=== PATIENT | male | born 1960 | race Caucasian/White ===

== ENCOUNTER 2021-04-19 08:09 | Outpatient (CLI) | payer MEDICARE, SELFPAY ==
--- NOTE | ~2021-04-19 | XR_ITS ---
XR knee LT 3V DATE: 04/19/2021 09:02 INDICATION: Medial left knee pain for 2 months TECHNIQUE: AP, lateral and sunrise views COMPARISON: None FINDINGS: There is prominent enthesopathy of the patella at the quadriceps and patellar tendon insert ions. No fracture or dislocation or joint effusion. No periosteal reaction or bone destruction. No radiopaq ue intra-articular loose body or chondrocalcinosis. There is moderately prominent loss of joint space and minimal periarticular spurring at the medial co mpartment. There is minimal periarticular spurring of the lateral compartment but preservation of lat eral compartment joint space. IMPRESSION: Osteoarthritis involving primarily the medial compartment Reviewed, dictated and finalized at location A. TER SUPERVISOR
[2021-04-19 18:17] LABS: Basophils Absolute Auto 0.1 K/mm3 (0.0-0.1); Eosinophils Absolute Auto 0.4 K/mm3 (0-0.3); Eosinophils Percent Auto 4.4 % (0-4.4); Hematocrit 53.6 % (42.0-52.0); Hemoglobin 16.6 g/dL (14.0-18.0); Immature Granulocyte Absolute 0.06 K/mm3 (0.00-0.031); Immature Granulocyte Percent A 0.7 % (0-0.5); Lymphocytes Absolute Auto 1.48 K/mm3 (0.9-3.2); Mean Corpuscular Hemoglobin 29.1 pg (26-34); Mean Corpuscular Volume 93.9 fl (80-100); Mean Platelet Volume 11.6 fl (7.4-10.4); Monocytes Absolute Auto 0.7 K/mm3 (0.1-0.6); Monocytes Percent Auto 8.8 % (2.6-8.5); Neutrophils Absolute Auto 5.5 K/mm3 (1.3-6.7); Neutrophils Percent Auto 67.1 % (45.5-73.1); Platelet Count Result 145 k/mm3 (150-375); Red Blood Count 5.71 M/mm3 (4.6-6.20); Red Cell Distribution Width 16.4 % (11.5-14.5); White Blood Count 8.2 K/mm3 (4.5-10.0)
[2021-04-19 18:40] LABS: Creatinine Urine 85.8 mg/dL
[2021-04-19 18:45] LABS: MALB Creatinine Ratio 11.9 mg/g (0-30); Microalbumin Urine Random 10.2 mg/L (0-16.7)
[2021-04-19 18:54] LABS: Alanine Aminotransferase 22 U/L (4-50); Albumin Level 3.9 g/dL (3.5-5.1); Alkaline Phosphatase 78 U/L (38-126); Anion Gap 12 mmol/L (8-16); Aspartate Amino Transferase 24 U/L (17-59); Bilirubin,Total 1.2 mg/dL (0.2-1.3); Blood Urea Nitrogen 35 mg/dL (9-20); Calcium 9.4 mg/dL (8.4-10.2); Carbon Dioxide 33 mmol/L (22-30); Chloride 92 mmol/L (98-107); Cholesterol 115 mg/dL (0-200); Estimated Glomerular Filt Rate 56; Glucose 175 mg/dL (65-110); HDL Direct 37 mg/dL; Potassium 4.4 mmol/L (3.4-5.0); Sodium 137 mmol/L (137-145); Triglycerides 94 mg/dL (<150)
[2021-04-19 19:02] LABS: Hemoglobin A1C 6.9 % (<5.7)
[2021-04-19 19:05] LABS: LDL Cholesterol Direct 69 mg/dL
[2021-04-19 19:23] LABS: Prostate Specific Antigen 0.8 ng/mL (< OR = 4.0)
[2021-04-23 12:52] LABS: Testosterone Free 30.5 pg/mL (35.0-155.0); Testosterone Total 131 ng/dL (250-1100)
== END 2021-04-19 08:10 | disposition home or self-care (01) ==
PROVIDERS: PCP Family Medicine; Visit Provider Family Medicine
DX: E11.9 Type 2 diabetes mellitus without complications (principal); Z12.5 Encounter for screening for malignant neoplasm of prostate; R79.89 Other specified abnormal findings of blood chemistry; M17.12 Unilateral primary osteoarthritis, left knee
CPT/HCPCS: 36415; 73562; 80053; 80061; 82043; 83036; 84153; 84402; 84403; 85025; G0103

== ENCOUNTER 2021-05-23 08:20 | Outpatient (CLI) | payer MEDICARE, SELFPAY ==
[2021-05-23 18:55] LABS: Basophils Percent Auto 0.7 % (0.2-1.2); Eosinophils Absolute Auto 0.4 K/mm3 (0-0.3); Hematocrit 49.8 % (42.0-52.0); Hemoglobin 15.3 g/dL (14.0-18.0); Immature Granulocyte Absolute 0.04 K/mm3 (0.00-0.031); Immature Granulocyte Percent A 0.7 % (0-0.5); Immature Platelet Fraction Pct 9.6 % (0.9-11.2); Lymphocytes Absolute Auto 0.77 K/mm3 (0.9-3.2); Lymphocytes Percent Auto 14.3 % (18.3-44.2); Mean Corpuscular HGB Conc 30.7 g/dl (32-36); Mean Corpuscular Hemoglobin 29.5 pg (26-34); Mean Corpuscular Volume 96.1 fl (80-100); Mean Platelet Volume 11.8 fl (7.4-10.4); Monocytes Absolute Auto 0.7 K/mm3 (0.1-0.6); Monocytes Percent Auto 13.4 % (2.6-8.5); Neutrophils Absolute Auto 3.4 K/mm3 (1.3-6.7); Neutrophils Percent Auto 62.9 % (45.5-73.1); Platelet Count Result 134 k/mm3 (150-375); Red Blood Count 5.18 M/mm3 (4.6-6.20); Red Cell Distribution Width 17.8 % (11.5-14.5); White Blood Count 5.4 K/mm3 (4.5-10.0)
[2021-05-28 15:14] LABS: Testosterone Free 27.3 pg/mL (35.0-155.0); Testosterone Total 145 ng/dL (250-1100)
== END 2021-05-23 08:21 | disposition home or self-care (01) ==
PROVIDERS: PCP Family Medicine; Visit Provider Family Medicine
DX: R79.89 Other specified abnormal findings of blood chemistry (principal); T78.40XA Allergy, unspecified, initial encounter
CPT/HCPCS: 36415; 84402; 84403; 85025; 85055

== ENCOUNTER 2021-06-01 20:28 | Inpatient (IN) | payer MEDICARE, SELFPAY ==
[2021-06-01] VITALS (23 sets, daily range): BP systolic 104–148; BP diastolic 60–98; PULSE 75–104; RESP 17–29; TEMP 36.6–37.3; O2SAT 90–95; BMI 47.2
--- NOTE | ~2021-06-01 | XR_ITS ---
EXAMINATION: XR chest 1V portable DATE: 06/03/2021 14:12 INDICATION: COVID-19 pneumonia. TECHNIQUE: A single frontal view of the chest was obtained. COMPARISON: Chest 2 views 06/01/2021 FINDINGS: There are mild airspace opacities in the lower lung zones. No pleural effusion or pneumotho rax. Cardiomegaly is noted. There are old healed bilateral rib fractures. IMPRESSION: 1. Improved mild airspace opacities in the lower lung zones, consistent with atelectasis versus pneum onia. 2. Cardiomegaly. Reviewed, dictated and finalized at location A. IMPRESSION: 1. Improved mild airspace opacities in the lower lung zones, consistent with at electasis versus pneumonia. 2. Cardiomegaly.
--- NOTE | ~2021-06-01 | XR_ITS ---
EXAMINATION: XR chest 2V EXAM DATE: 06/01/2021 21:05 INDICATION: Hypoxia, SOB X 1 Week, Worse Last 2 Days. TECHNIQUE: Frontal and lateral projections of the chest obtained and reviewed. There is no prior svetlana dy for comparison. FINDINGS: There is mild cardiomegaly. Moderate amount of bilateral mid and lower lung zone airspace disease with relative sparing of the upper lung zones. Could be edema and/or pneumonia. Please clinic ally correlate. Small pleural effusions. There is no pneumothorax suspected. IMPRESSION: 1. Mild cardiomegaly. Small pleural effusions. . 2. Moderate bilateral edema (CHF) or pneumonia, would favor viral or bacterial. Reviewed, dictated and finalized at location G. IMPRESSION: 1. Mild cardiomegaly. Small pleural effusions. . 2. Moderate bilateral edema (CHF) or pneumonia, would favor viral or bacterial .
--- NOTE | 2021-06-01 20:39 | ECG_ITS ---
Measurements Intervals [place] Rate: 94 P: 63 SC: 209 QRS: 126 QRSD: 102 T: 71 QT: 392 QTc: 491 Interpretive Statements SINUS RHYTHM WITH FREQUENT SUPRAVENTRICULAR PREMATURE COMPLEXES INCOMPLETE RIGHT BUNDLE BRANCH BLOCK [90+ ms QRS DURATION, TERMINAL R IN V1/V2, 40+ ms S IN I/aVL/V4/V5/V6] RIGHTWARD AXIS ABNORMAL ECG NO PREVIOUS ECG AVAILABLE FOR COMPARISON Electronically Signed On 06-02-2021 8:32:25 CDT by Eduardo Lam M.D.
[2021-06-01 20:52] LABS: Basophils Percent Auto 0.5 % (0.2-1.2); Eosinophils Absolute Auto 0.1 K/mm3 (0-0.3); Eosinophils Percent Auto 2.6 % (0-4.4); Hematocrit 49.4 % (42.0-52.0); Hemoglobin 15.6 g/dL (14.0-18.0); Immature Granulocyte Absolute 0.05 K/mm3 (0.00-0.031); Immature Granulocyte Percent A 1.3 % (0-0.5); Immature Platelet Fraction Pct 8.4 % (0.9-11.2); Lymphocytes Absolute Auto 1.02 K/mm3 (0.9-3.2); Lymphocytes Percent Auto 26.1 % (18.3-44.2); Mean Corpuscular HGB Conc 31.6 g/dl (32-36); Mean Corpuscular Hemoglobin 29.3 pg (26-34); Mean Corpuscular Volume 92.9 fl (80-100); Mean Platelet Volume 11.3 fl (7.4-10.4); Monocytes Absolute Auto 0.5 K/mm3 (0.1-0.6); Monocytes Percent Auto 12.5 % (2.6-8.5); Neutrophils Absolute Auto 2.2 K/mm3 (1.3-6.7); Platelet Count Result 132 k/mm3 (150-375); Red Blood Count 5.32 M/mm3 (4.6-6.20); Red Cell Distribution Width 18.1 % (11.5-14.5); White Blood Count 3.9 K/mm3 (4.5-10.0)
[2021-06-01 21:00] LABS: Alanine Aminotransferase 33 U/L (4-50); Albumin Level 3.8 g/dL (3.5-5.1); Alkaline Phosphatase 66 U/L (38-126); Anion Gap 7 mmol/L (8-16); Aspartate Amino Transferase 38 U/L (17-59); Blood Urea Nitrogen 22 mg/dL (9-20); Calcium 8.5 mg/dL (8.4-10.2); Carbon Dioxide 31 mmol/L (22-30); Chloride 100 mmol/L (98-107); Estimated CRCL calculation 80 ml/min; Estimated Glomerular Filt Rate > 60; Glucose 139 mg/dL (65-110); Potassium 3.9 mmol/L (3.4-5.0); Sodium 138 mmol/L (137-145)
--- NOTE | 2021-06-01 21:25 | ED.SOB ---
HPI - SOB/Dyspnea General Chief Complaint: Shortness of Breath/Dyspnea Stated Complaint: SOB Time Seen by Provider: 06/01/21 20:50 History of Present Illness HPI Narrative: Patient is a 60-year-old male who presents ER with shortness of breath. Has history of CHF. Takes diuretics. Ran out yesterday. No new edema in his legs. Has had increasing shortness of breath over the last 1 to 2 weeks. Markedly worsening today. Reports his O2 saturation is typically between 88 and 90. He has home O2 that was given to him a couple months ago after hospital hospitalization. Reports he should use this at night and as needed. No chest pain or chest pressure. No fevers or chills or sweats. No runny nose or sore throat or productive cough. Related Data Home Medications Medication Instructions Recorded Confirmed carvedilol 3.125 mg PO DAILY 06/02/21 06/02/21 linagliptin [Tradjenta] 5 mg PO DAILY 06/02/21 06/02/21 metformin 500 mg PO BID 06/02/21 06/02/21 Allergies Allergy/AdvReac Type Severity Reaction Status Date / Time diphenhydramine Allergy Rash Verified 06/02/21 00:35 [From Benadryl] Penicillins AdvReac Swelling Verified 06/02/21 00:35 Review of Systems Review of Systems: All systems reviewed & are unremarkable except as noted in HPI and below Constitutional: Constitutional: Denies chills, Denies fever(s) and Denies weakness ENT: Denies nasal congestion and Denies sore throat Cardiovascular: Cardiovascular: Denies chest pain, Denies rapid heart rate and Denies radiating jaw, neck or arm pain Respiratory: Respiratory: Denies chest congestion, Denies cough, Reports dyspnea and Denies wheezing Gastrointestinal: Gastrointestinal: Denies abdominal pain, Denies diarrhea, Denies nausea and Denies vomiting Genitourinary: Genitourinary: Denies dysuria and Denies urinary frequency Neurologic: Denies headache(s), Denies focal weakness and Denies numbness [facility] Past Medical History Medical History (Updated 06/02/21 @ 01:33 by Loraine Bradley DO) Bleeding from varicose veins of lower extremity (~2012) Resulting in hemorrhagic shock BPH (benign prostatic hyperplasia) CHF (congestive heart failure) Diabetes hemoglobin A1c of 6.9 April 19, 2021 Dyslipidemia History of hepatitis C Low testosterone Morbid obesity with BMI of 40.0-44.9, adult MAYE (obstructive sleep apnea) Uses nighttime oxygen Venous stasis dermatitis Surgical History Surgical History (Updated 06/02/21 @ 01:01 by Loraine Bradley DO) H/O inguinal hernia repair As an infant History of colonoscopy with polypectomy (~2019) Due for repeat colonoscopy 2024 History of laparoscopic cholecystectomy Family History Family History Father , At age 84 Alzheimer disease Heart problem Skin cancer Mother , At age 63 Carcinoma of colon Sibling , At age 52 Malignant melanoma Social History Social History (Updated 06/02/21 @ 01:11 by Loraine Bradley DO) Social History: The patient is . He currently is living with a friend while looking for his own residence. 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 He used to smoke 1 pack of cigarettes per week with intermittent tobacco use over the years. He quit smoking altogether in 2011. He is a recovering alcoholic but quit drinking in 2017. He used IV methamphetamines but quit use in 2019. Code status: DNR in the event of a cardiac arrest. If he were having respiratory difficulty he would be willing to be intubated if he had a reasonable chance of being extubated and returning to his prior functional status. Surrogate decision makers: Feroz (son) and Saqib Pitts (daughter) Smoking packs per day: 0.45 Smoking cigarettes per day: 9.0 Years smoked: 20 Smoking pack-years: 9.00 Smoking status: Former smoker Alcohol intake:
[2021-06-01 21:32] LABS: NT Pro B Type Natriuretic Pept 2280 pg/mL (5-100)
[2021-06-01] MEDS: ALBUTEROL SULFATE NEB 2.5 MG/0.5 ML INH 5 MG INHALATION (21:35)
[2021-06-01] MEDS: IPRATROPIUM BR 0.02% INH SOLN 0.5 MG/2.5 ML VIAL INHALATION (21:36)
[2021-06-01] MEDS: FUROSEMIDE INJ 40 MG/4 ML VIAL IV PUSH (21:56)
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
[2021-06-01 23:14] LABS: SARS-CoV-2 RNA PCR Positive
--- NOTE | 2021-06-01 23:46 | ADMGEN ---
This patient, Ian Renteria, was admitted to Medical Room 344-01. Patient/family oriented to hospital policies and general routines including ID bracelet, bed and alarms, visiting hours, pain management, procedures, bathroom and other care routines, personal items, smoking policy, room service/diet, and visiting hours. Information on how to activate the Rapid Response Team has been discussed. Patient/Family are encouraged to report perceived risks to care and to ask questions if they do not understand what they are told or what they should do.
[2021-06-02] VITALS (11 sets, daily range): BP systolic 104–117; BP diastolic 62–84; PULSE 64–106; RESP 20–22; TEMP 36.3–36.7; O2SAT 89–96
[2021-06-02] MEDS: REMDESIVIR 200 MG/NS 250 ML 200 MG/250 ML BAG 250 MG IVPB (01:35)
[2021-06-02 06:26] LABS: Hematocrit 49.8 % (42.0-52.0); Hemoglobin 15.9 g/dL (14.0-18.0); Immature Platelet Fraction Pct 8.5 % (0.9-11.2); Mean Corpuscular HGB Conc 31.9 g/dl (32-36); Mean Corpuscular Hemoglobin 29.5 pg (26-34); Mean Corpuscular Volume 92.4 fl (80-100); Mean Platelet Volume 11.5 fl (7.4-10.4); Platelet Count Result 129 k/mm3 (150-375); Red Blood Count 5.39 M/mm3 (4.6-6.20); White Blood Count 4.7 K/mm3 (4.5-10.0)
[2021-06-02 06:33] LABS: Anion Gap 8 mmol/L (8-16); Blood Urea Nitrogen 22 mg/dL (9-20); Calcium 8.4 mg/dL (8.4-10.2); Carbon Dioxide 28 mmol/L (22-30); Chloride 99 mmol/L (98-107); Estimated CRCL calculation 72 ml/min; Estimated Glomerular Filt Rate 52; Glucose 216 mg/dL (65-110); Magnesium 1.8 mg/dL (1.6-2.3); Potassium 4.4 mmol/L (3.4-5.0); Sodium 135 mmol/L (137-145)
[2021-06-02 06:38] LABS: CRP 2.1 mg/dL (<1.0); Lactate Dehydrogenase 482 U/L (313-618)
[2021-06-02] MEDS: FUROSEMIDE INJ 40 MG/4 ML VIAL IV PUSH ×2 (09:38→20:56)
[2021-06-02] MEDS: carvediloL 3.125 MG TABLET PO ×2 (09:39→17:25)
[2021-06-02] MEDS: INSULIN ASPART (*BKC) 100 UNITS/ML SUB-Q ×3 (09:39→17:25)
[2021-06-02] MEDS: ENOXAPARIN 40 MG/0.4 ML SYRINGE SUB-Q (09:39)
[2021-06-02] MEDS: metFORMIN HCL 500 MG TABLET PO ×2 (09:39→17:25)
[2021-06-02] MEDS: SPIRONOLACTONE 50 MG TABLET 100 MG PO (09:39)
[2021-06-02 10:58] LABS: Glucose Point of Care 276 mg/dl (65-105)
[2021-06-02 11:58] LABS: Glucose Point of Care 341 mg/dl (65-105)
--- NOTE | 2021-06-02 16:27 | PM.IMPN ---
Progress Note: A&P Assessment and Plan (1) Acute and chronic respiratory failure with hypoxia: Code(s): J96.21 - Acute and chronic respiratory failure with hypoxia Status: Acute (2) Pneumonia due to COVID-19 virus: Code(s): U07.1 - COVID-19; J12.82 - Pneumonia due to coronavirus disease 2018 Status: Acute (3) Acute exacerbation of CHF (congestive heart failure): Qualifiers: Heart failure type: unspecified Qualified Code(s): I50.9 - Heart failure, unspecified Code(s): I50.9 - Heart failure, unspecified Status: Acute (4) MAYE (obstructive sleep apnea): Code(s): G47.33 - Obstructive sleep apnea (adult) (pediatric) Status: Acute (5) Diabetes: Qualifiers: Diabetes mellitus type: type 2 Diabetes mellitus halfway insulin use: without case manager specialist use Diabetes mellitus complication status: without complication Qualified Code(s): E11.9 - Type 2 diabetes mellitus without complications Code(s): E11.9 - Type 2 diabetes mellitus without complications Status: Acute Additional Plan Patient has acute on chronic respiratory failure due to combination of COVID-19 pneumonia and CHF exacerbation. pt is on 2 liters of oxygen continue oxygen iv lasix and iv steroids. started on Remdesivir. supportive care continue to watch respiratory status. Stable as for now. Hopeful discharge soon next 2-4 days time Subjective Date/time seen: 06/02/21 16:27 Interval history: 60-year-old male with past medical history of essential hypertension, CHF and low testosterone who presented to the ER via private vehicle from home due to shortness of breath. Pt found to be covid positive, pt is on 2 liters of oxygen which is his baseline, but pt continues to feel sob with dry cough, no fevers reported. cxrshows - 1. Mild cardiomegaly. Small pleural effusions. . 2. Moderate bilateral edema (CHF) or pneumonia, would favor viral or bacterial. Review of Systems Review of Systems: All systems reviewed & are unremarkable except as noted in HPI and below Exam Const: General: in distress Nutritional Appearance: obese and other (tired appearing on oxygen ) Orientation/consciousness: oriented to person HENMT: Head: normal to inspection Resp: Effort & Inspection: no respiratory distress Auscultation: no rhonchi and no wheezes Cardio: Rate: regular rate Rhythm: regular rhythm GI: Inspection: normal to inspection GI Palp: No abdominal tenderness, No Guarding due to palpation present (GI) and No Hepatomegaly present Auscultation: normal bowel sounds Neuro: General: oriented to person Objective Data Vital Signs Vital Signs: Vital Signs - 24 hr 06/01/21 20:35 06/01/21 20:38 06/01/21 20:42 Temperature 36.6 C Pulse Rate 104 H 96 Respiratory Rate 23 H 27 H Blood Pressure 148/90 H Pulse Oximetry 90 93 06/01/21 20:45 06/01/21 21:07 06/01/21 21:15 Temperature Pulse Rate 88 100 102 H Respiratory Rate 24 H 22 H 25 H Blood Pressure Pulse Oximetry 06/01/21 21:29 06/01/21 21:30 06/01/21 21:31 Temperature Pulse Rate 87 82 93 Respiratory Rate 25 H 25 H 18 Blood Pressure 104/77 104/80 Pulse Oximetry 06/01/21 21:32 06/01/21 21:36 06/01/21 21:45 Temperature Pulse Rate 87 85 78 Respiratory Rate 25 H 20 21 H Blood Pressure Pulse Oximetry 92 06/01/21 21:46 06/01/21 22:00 06/01/21 22:07 Temperature Pulse Rate 75 80 Respiratory Rate 18 22 H Blood Pressure 113/96 H Pulse Oximetry 95 94 06/01/21 22:15 06/01/21 22:16 06/01/21 22:30 Temperature Pulse Rate 79 91 79 Respiratory Rate 18 26 H 17 Blood Pressure 127/98 H Pulse Oximetry 06/01/21 22:45 06/01/21 22:46 06/01/21 23:30 Temperature Pulse Rate 84 82 84 Respiratory Rate 27 H 29 H 24 H Blood Pressure 125/77 125/94 H Pulse Oximetry 94 06/01/21 23:45 06/01/21 23:59 06/02/21 00:00 Temperature 37.3 C Pulse Rate 83 84 Respiratory Rate
[2021-06-02 16:35] LABS: Glucose Point of Care 278 mg/dl (65-105)
[2021-06-02] MEDS: BENZONATATE 100 MG CAPSULE PO (17:25)
[2021-06-02] MEDS: REMDESIVIR 100 MG/NS 250 ML 100 MG/250 ML BAG 250 MG IVPB (20:56)
[2021-06-02 21:07] LABS: Glucose Point of Care 202 mg/dl (65-105)
[2021-06-03] VITALS (9 sets, daily range): BP systolic 109–142; BP diastolic 60–75; PULSE 63–102; RESP 16–22; TEMP 36.1–36.4; O2SAT 92–96
--- NOTE | 2021-06-03 | ECHO_ITS ---
Patient Info Name: Ian Renteria Age: 60 years : 1960 Gender: Male Ht: 70 in Wt: 321 lbs BSA: 2.76 m2 HR: 110 bpm BP: 109 / 67 mmHg Technical Quality: Poor Exam Date: 06/03/2021 2:23 PM Exam Location: [facility] Patient Status: Inpatient Admit Date: 06/02/2021 Staff Ordering Physician: Diana Kowalski PA-C [employer] Leak Tester: Tana [place] RDCS Attending Provider: Diana Kowalski PA-C Referring Physician: Dex CAMERON; Exam Type: CA echo dop color flow w con Study Info Indications I50.9 - Heart failure, unspecified Complete two-dimensional, color flow and Doppler transthoracic echocardiogram is performed with contrast to opacify the left ventricle and to improve the deliniation of the left ventricle endocardial borders. Contrast/Agitated Saline Contrast/Ag. Saline: Definity Amount: 4.00 ml Administered By: Tana [place] RDCS Existing IV Access: Yes IV Access Condition: patent with no signs of infiltration Reason for Poor Study: patient body habitus Summary 1. Technically suboptimal study due to poor sonographic images. 2. Definity contrast administered improved wall motion interpretation. 3. Left ventricular chamber dimension is normal. 4. Left ventricular systolic function is normal, estimated at 55-60%. 5. The left ventricular diastolic function is grade I diastolic dysfunction. 6. E/e' 9 is minimally elevated. 7. Right ventricular systolic function is moderately reduced. 8. Right ventricular chamber dimension is moderately enlarged. 9. Left atrial chamber dimension is mildly enlarged. 10. Right atrial chamber dimension is moderately enlarged. 11. The mitral valve has mildly calcified annulus. 12. There is mild tricuspid valve regurgitation. 13. Severe pulmonary hypertension, estimated pulmonary arterial systolic pressure is 69 mmHg. 14. Dilated inferior vena cava with >50% collapse upon inspiration consistent with elevated right atrial pressure, 10 mmHg. Left Ventricle Definity contrast administered improved wall motion interpretation. Technically suboptimal study due to poor sonographic images. E/e' 9 is minimally elevated. Left ventricular chamber dimension is normal. Left ventricular systolic function is normal, estimated at 55-60%. The left ventricular diastolic function is grade I diastolic dysfunction. Right Ventricle Right ventricular systolic function is moderately reduced. Moderator band noted is a normal variant. Right ventricular chamber dimension is moderately enlarged. Left Atria Left atrial chamber dimension is mildly enlarged. Right Atria Right atrial chamber dimension is moderately enlarged. Aortic Valve The aortic valve is trileaflet. There is no aortic valve stenosis. There is no aortic valve regurgitation. Pulmonic Valve There is no pulmonic regurgitation. Mitral Valve The mitral valve has mildly calcified annulus. There is no mitral valve stenosis. There is no mitral valve regurgitation. Tricuspid Valve There is mild tricuspid valve regurgitation. Severe pulmonary hypertension, estimated pulmonary arterial systolic pressure is 69 mmHg. Pericardium/Pleural There is no pericardial effusion. Inferior Vena Cava Dilated inferior vena cava with >50% collapse upon inspiration consistent with elevated right atrial pressure, 10 mmHg. Aorta The aortic root size at the sinus of Valsalva is normal. Left Ventricular Outflow Tract --
[2021-06-03 06:01] LABS: INR 1.1; Prothrombin Time 13.8 Seconds (11.1-14.7)
[2021-06-03 06:01] LABS: Alanine Aminotransferase 30 U/L (4-50); Estimated CRCL calculation 90 ml/min; Estimated Glomerular Filt Rate > 60
[2021-06-03 07:45] LABS: Glucose Point of Care 175 mg/dl (65-105)
[2021-06-03] MEDS: SPIRONOLACTONE 50 MG TABLET 100 MG PO (08:48)
[2021-06-03] MEDS: carvediloL 3.125 MG TABLET PO ×2 (08:49→16:57)
[2021-06-03] MEDS: metFORMIN HCL 500 MG TABLET PO ×2 (08:49→16:57)
[2021-06-03] MEDS: ENOXAPARIN 40 MG/0.4 ML SYRINGE SUB-Q (08:49)
[2021-06-03] MEDS: FUROSEMIDE INJ 40 MG/4 ML VIAL IV PUSH ×2 (08:49→21:10)
[2021-06-03] MEDS: BENZONATATE 100 MG CAPSULE PO ×3 (08:49→16:57)
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
[2021-06-03 11:20] LABS: Glucose Point of Care 356 mg/dl (65-105)
[2021-06-03] MEDS: INSULIN ASPART (*BKC) 100 UNITS/ML 15 UNITS SUB-Q (12:32)
[2021-06-03 16:39] LABS: Glucose Point of Care 194 mg/dl (65-105)
[2021-06-03] MEDS: EUCERIN CREAM 120 GM JAR 1 APPLIC TOPICAL (16:57)
[2021-06-03 19:38] LABS: Glucose Point of Care 237 mg/dl (65-105)
[2021-06-03] MEDS: REMDESIVIR 100 MG/NS 250 ML 100 MG/250 ML BAG 250 MG IVPB (21:11)
--- NOTE | 2021-06-03 22:49 | PCRCNOTE ---
Pt hesitant, does not want any kind of sleep study, has had CPAP before but cannot pay any co-pays for tests or equipment, prefers O2 @ home & a fan on
[2021-06-04] VITALS (15 sets, daily range): BP systolic 104–118; BP diastolic 60–84; PULSE 50–99; RESP 18–23; TEMP 35.4–36.7; O2SAT 87–96
[2021-06-04 05:42] LABS: Hemoglobin 15.6 g/dL (14.0-18.0); Immature Platelet Fraction Pct 8.8 % (0.9-11.2); Mean Corpuscular HGB Conc 31.8 g/dl (32-36); Mean Corpuscular Hemoglobin 29.3 pg (26-34); Mean Corpuscular Volume 92.1 fl (80-100); Mean Platelet Volume 11.5 fl (7.4-10.4); Platelet Count Result 143 k/mm3 (150-375); Red Blood Count 5.32 M/mm3 (4.6-6.20); Red Cell Distribution Width 17.2 % (11.5-14.5); White Blood Count 7.9 K/mm3 (4.5-10.0)
[2021-06-04 05:50] LABS: INR 1.1; Prothrombin Time 14.2 Seconds (11.1-14.7)
[2021-06-04 05:56] LABS: Alanine Aminotransferase 36 U/L (4-50); Albumin Level 3.7 g/dL (3.5-5.1); Alkaline Phosphatase 62 U/L (38-126); Anion Gap 7 mmol/L (8-16); Aspartate Amino Transferase 27 U/L (17-59); Bilirubin,Total 0.9 mg/dL (0.2-1.3); Blood Urea Nitrogen 22 mg/dL (9-20); Calcium 8.5 mg/dL (8.4-10.2); Carbon Dioxide 30 mmol/L (22-30); Chloride 99 mmol/L (98-107); Estimated CRCL calculation 88 ml/min; Estimated Glomerular Filt Rate > 60; Glucose 171 mg/dL (65-110); Potassium 4.3 mmol/L (3.4-5.0); Sodium 136 mmol/L (137-145)
--- NOTE | 2021-06-04 07:10 | PM.IMPN ---
Progress Note: A&P Additional Plan Subjective Date/time seen: 06/04/21 07:10 Objective Data Vital Signs Vital Signs: Vital Signs - 24 hr 06/03/21 08:00 06/03/21 09:58 06/03/21 12:00 Temperature 97.6 F Pulse Rate 71 76 Respiratory Rate 16 Blood Pressure 109/67 Pulse Oximetry 96 96 06/03/21 14:17 06/03/21 17:37 06/03/21 20:00 Temperature 97.5 F L 97.5 F L Pulse Rate 76 76 70 Respiratory Rate 16 22 H Blood Pressure 133/75 120/60 Pulse Oximetry 96 96 06/04/21 00:00 06/04/21 04:00 Temperature 96.6 F L 96.7 F L Pulse Rate 74 78 Respiratory Rate 23 H 20 Blood Pressure 118/84 104/60 Pulse Oximetry 96 95 Intake/Output Intake/Output: Intake & Output 06/01/21 06/02/21 06/03/21 06/04/21 23:59 23:59 23:59 23:59 Intake Total 1460 1930 Output Total 450 3500 Balance 1010 -1570 Meds/Results Medications: Active Medications Generic Name Dose Route Start Last Admin Trade Name Freq PRN Reason Stop Dose Admin Acetaminophen 650 mg 06/01/21 22:36 Acetaminophen 325 Mg Tablet PO Q4H PRN Mild Pain (1-3) or Fever Benzonatate 100 mg 06/02/21 17:00 06/03/21 16:57 Benzonatate 100 Mg Capsule PO 100 mg TID GUNJAN Administration Carvedilol 3.125 mg 06/02/21 08:00 06/03/21 16:57 Carvedilol 3.125 Mg Tablet PO 3.125 mg BIDWM GUNJAN Administration Dexamethasone Sodium Phosphate 6 mg 06/02/21 09:00 06/03/21 08:49 Dexamethasone Sod Phos Inj 10 Mg/Ml 1 Ml Vial IV PUSH 06/11/21 09:01 6 mg DAILY GUNJAN Administration Dextrose 12.5 gm 06/02/21 01:35 Dextrose 50% 25 Gm/50 Ml Syringe IV PUSH PRN PRN Hypoglycemia Protocol Enoxaparin Sodium 40 mg 06/02/21 09:00 06/03/21 08:49 Enoxaparin 40 Mg/0.4 Ml Syringe SUB-Q 40 mg DAILY GUNJAN Administration Furosemide 40 mg 06/02/21 09:00 06/03/21 21:10 Furosemide Inj 40 Mg/4 Ml Vial IV PUSH 40 mg Q12HR GUNJAN Administration Glucagon 1 mg 06/02/21 01:35 Glucagon For Inj 1 Mg Vial IM PRN PRN Hypoglycemia Protocol Glucose 15 gm 06/02/21 01:35 Glucose Oral Gel 15 Gm Of Glucse In 37.5 Gm Tube PO PRN PRN Hypoglycemia Protocol Remdesivir 100 mg in 250 mls @ 250 mls/hr 06/02/21 22:00 06/03/21 22:15 IVPB 06/05/21 22:59 Infused Q24H GUNJAN Infusion Dextrose 1,000 mls @ 100 mls/hr 06/02/21 01:35 Dextrose 5% 1,000 Ml IVPB PRN PRN Hypoglycemia Protocol Insulin Aspart 4 - 8 units 06/03/21 12:00 06/03/21 16:45 Insulin Aspart (*Bkc) 100 Units/Ml SUB-Q Not Given TIDWM GUNJAN Protocol Metformin HCl 500 mg 06/02/21 08:00 06/03/21 16:57 Metformin Hcl 500 Mg Tablet PO 500 mg BIDWM GUNJAN Administration Miscellaneous Information 0 each 06/02/21 01:55 06/02/21 15:33 Linagliptin- Nonformulary. Recommend Changing To Formulary Equivalent Sitagliptin 100mg Po XX 07/02/21 01:54 Not Given CLARIFY GUNJAN Multi-Ingred Cream/Lotion/Oil/Oint 1 applic 06/03/21 17:00 06/03/21 16:57 Eucerin Cream 120 Gm Jar TOPICAL 1 applic BID GUNJAN Administration Non-Formulary Medication 5 mg 06/02/21 09:00 Linagliptin [Tradjenta] PO 07/02/21 08:59 DAILY GUNJAN Ondansetron HCl 4 mg 06/01/21 22:36 Ondansetron Inj 4 Mg/2 Ml Vial IV PUSH Q4H PRN Nausea Perflutren Lipid Microsphere 0 ml 06/03/21 10:47 Perflutren Lipid Microspheres 1.5 Ml Vial Diluted To 10 Ml Total Volume IV PUSH ONCE PRN adequate visualization Protocol Perflutren Lipid Microsphere 0 ml 06/03/21 14:01 Perflutren Lipid Microspheres 1.5 Ml Vial Diluted To 10 Ml Total Volume IV PUSH ONCE PRN adequate visualization Protocol Spironolactone 100 mg 06/02/21 09:00 06/03/21 08:48 Spironolactone 50 Mg Tablet PO 100 mg DAILY GUNJAN Administration Radiology Results: ITS Impressions Chest X-Ray 06/03/21 14:21 IMPRESSION: 1. Improved mild airspace opacities in the lower lung zones, consiste
[2021-06-04 07:37] LABS: Glucose Point of Care 154 mg/dl (65-105)
[2021-06-04 07:45] LABS: Hemoglobin A1C 6.3 % (<5.7)
[2021-06-04] MEDS: carvediloL 3.125 MG TABLET PO ×2 (08:59→17:18)
[2021-06-04] MEDS: SPIRONOLACTONE 50 MG TABLET 100 MG PO (08:59)
[2021-06-04] MEDS: metFORMIN HCL 500 MG TABLET PO ×2 (09:00→17:19)
[2021-06-04] MEDS: FUROSEMIDE INJ 40 MG/4 ML VIAL IV PUSH (09:02)
[2021-06-04] MEDS: ENOXAPARIN 40 MG/0.4 ML SYRINGE SUB-Q (09:02)
[2021-06-04] MEDS: EUCERIN CREAM 120 GM JAR 1 APPLIC TOPICAL ×2 (09:06→17:19)
--- NOTE | 2021-06-04 11:05 | PM.IMPN ---
Progress Note: A&P Assessment and Plan (1) Pneumonia due to COVID-19 virus: Code(s): U07.1 - COVID-19; J12.82 - Pneumonia due to coronavirus disease 2019 Status: Acute Assessment and Plan: Patient is clinically improving and reporting improved shortness of breath and dyspnea on exertion. - 06/03 CXR shows improved mild airspace opacities in the lower lung zones. - Patient continues to maintain O2 saturations at 96 and 95% on 2L O2. - Continue to wean off O2 during the day. - Continue remdesivir therapy. - Stop steroid today due to pending discharge and elevated BG readings in hospital. (2) Acute exacerbation of CHF (congestive heart failure): Qualifiers: Heart failure type: unspecified Qualified Code(s): I50.9 - Heart failure, unspecified Code(s): I50.9 - Heart failure, unspecified Status: Acute Assessment and Plan: 06/03 Echo showed severe pulmonary hypertension with PA pressures of 69, moderate right atrial and ventricular enlargement, preserved LVEF at 55-60%. Patient was educated on not skipping doses of his diuretics and advised to keep his blood pressure under control to help with avoiding future heart failure exacerbations. Patient was educated on causes of heart failure, healthy diet, and medication adherence. Patient also advised on options to search for more affordable Rx medication. - Continue optimal antihypertensive therapy. - Transition from IV furosemide to oral today. (3) Acute and chronic respiratory failure with hypoxia: Code(s): J96.21 - Acute and chronic respiratory failure with hypoxia Status: Acute Assessment and Plan: Patient is clinically improving and reporting improved shortness of breath and dyspnea on exertion. - Patient continues to maintain O2 saturations at 96 and 95% on 2L O2. - Continue to wean off O2 during the day. - Patient will consent to an apea link test tonight. (4) MAYE (obstructive sleep apnea): Code(s): G47.33 - Obstructive sleep apnea (adult) (pediatric) Status: Acute Assessment and Plan: Patient lost his CPAP, he continues to use O2 at night via nasal cannula. He refused apnea link test, but after pt education is willing to undergo the testing tonight. He has no desire to obtain a new CPAP machine due to cost. (5) Venous stasis: Code(s): I87.8 - Other specified disorders of veins Status: Acute Assessment and Plan: -Continue Eucerin cream BID. (6) Diabetes: Qualifiers: Diabetes mellitus complication status: without complication Diabetes mellitus intermediate school teacher insulin use: without mcc use Diabetes mellitus type: type 2 Qualified Code(s): E11.9 - Type 2 diabetes mellitus without complications Code(s): E11.9 - Type 2 diabetes mellitus without complications Status: Acute Assessment and Plan: I adjusted his sliding scale yesterday due to high-dose due to pre-prandial BG of 356@ 11:14 yesterday, likely due to dexamethasone therapy. Fingersticks have been 194 and 237. He would benefit from a basal dose of Lantus in the PM, however, given pending discharge, will maintain current home medications and high-dose sliding scale insulin due to steroid therapy. - Patient is not on home insulin and is otherwise insulin naive. Will need to discuss handoff to primary care for management of elevated BG here in the hospital. - Stop steroid therapy today to better assess his BG prior to discharge. Review of Systems Review of Systems: All systems reviewed & are unremarkable except as noted in HPI and below Exam Resp: Effort & Inspection: normal respiratory effort and able to speak in complete sentences Auscultation: clear to auscultation bilaterally, no crackles, no rales and no wheezes Cardio: Jugular venous distension: no JVD Palpation: normal PMI Rate: regular rate Rhythm: regular rhythm Heart sounds: S1 normal heart sound present, S2 normal heart sound prese
[2021-06-04 11:13] LABS: Glucose Point of Care 249 mg/dl (65-105)
[2021-06-04] MEDS: INSULIN ASPART (*BKC) 100 UNITS/ML SUB-Q ×2 (12:30→17:18)
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
--- NOTE | 2021-06-04 16:06 | HOMEO2EVAL ---
Evaluation was performed at [facility] Home Oxygen Evaluation RC: Home Oxygen (O2) Evaluation Start: 06/04/21 12:56 Freq: ONCE Status: Active Protocol: RPE Activity Type Activity Date Activity User E-Sign Co-Sign Detail Recorded Client Recorded Date Recorded By Document 06/04/21 15:00 CARMEN [email or web address] 06/04/21 16:06 CARMEN Document 06/04/21 15:05 CARMEN [email or web address] 06/04/21 16:06 CARMEN Document 06/04/21 15:06 CARMEN [email or web address] 06/04/21 16:06 CARMEN Document 06/04/21 15:07 CARMEN [email or web address] 06/04/21 16:06 CARMEN Document 06/04/21 15:15 CARMEN [email or web address] 06/04/21 16:06 CARMEN 06/04/21 06/04/21 06/04/21 15:00 15:05 15:06 Home O2 Evaluation Test Phase Resting Exercise Exercise Oxygen Delivery Room Air Room Air Nasal Cannula Oxygen Flow Rate (L/min) 1 Pulse Oximetry (90-100 %) 92 87 L 87 L Home Oxygen Evaluation Comments Treatment Charges O2 Evaluation - Inpatient 06/04/21 06/04/21 15:07 15:15 Home O2 Evaluation Test Phase Exercise Resting Oxygen Delivery Nasal Cannula Room Air Oxygen Flow Rate (L/min) 1.5 Pulse Oximetry (90-100 %) 89 L 92 Home Oxygen Evaluation Comments PT REQUIRES 1.5 L WITH ACTIVITY, ROOM AIR AT REST Treatment Charges
--- NOTE | 2021-06-04 16:06 | PCRCNOTE ---
HOME O2 EVAL DONE, PT HAS HOME O2 WITH [facility]. PT HAS A PORTABLE TANK FOR TRANSPORT HOME. PT REQUIRES 1.5 L WITH ACTIVITY, ALSO WEARS O2 WITH SLEEPING, ROOM AIR AT REST. PT HAS ALL REQUIRED O2 NEEDS AT HOME. NO NEW SET UP NEEDED AT THIS TIME.
[2021-06-04 16:36] LABS: Glucose Point of Care 272 mg/dl (65-105)
[2021-06-04] MEDS: FUROSEMIDE 40 MG TABLET PO (17:44)
[2021-06-04] MEDS: REMDESIVIR 100 MG/NS 250 ML 100 MG/250 ML BAG 250 MG IVPB (21:04)
[2021-06-04 21:13] LABS: Glucose Point of Care 238 mg/dl (65-105)
[2021-06-05 05:42] LABS: INR 1.2; Prothrombin Time 14.6 Seconds (11.1-14.7)
[2021-06-05 05:43] LABS: Alanine Aminotransferase 40 U/L (4-50); Estimated CRCL calculation 96 ml/min; Estimated Glomerular Filt Rate > 60
[2021-06-05 06:20] VITALS: BP 101/64; PULSE 71; RESP 20; TEMP 36.4; O2SAT 95
[2021-06-05 07:50] LABS: Glucose Point of Care 145 mg/dl (65-105)
[2021-06-05 09:58] VITALS: PULSE 72
[2021-06-05] MEDS: FUROSEMIDE 40 MG TABLET PO (09:58)
[2021-06-05] MEDS: SPIRONOLACTONE 50 MG TABLET 100 MG PO (09:58)
[2021-06-05] MEDS: carvediloL 3.125 MG TABLET PO (09:58)
[2021-06-05] MEDS: ENOXAPARIN 40 MG/0.4 ML SYRINGE SUB-Q (09:58)
[2021-06-05] MEDS: metFORMIN HCL 500 MG TABLET PO (09:58)
[2021-06-05] MEDS: EUCERIN CREAM 120 GM JAR 1 APPLIC TOPICAL (09:59)
== END 2021-06-05 11:00 | disposition home or self-care (01) | DRG 177 ==
LOC: ANHED 21:12 → ANH3MED 22:57
PROVIDERS: Admitting Provider Internal Medicine; Emergency Provider Emergency Medicine; PCP Family Medicine; Visit Provider Student in an Organized Health Care Education/Training Program
DX: J12.82 Pneumonia due to coronavirus disease 2019 (principal); U07.1 COVID-19; J96.21 Acute and chronic respiratory failure with hypoxia; Z68.42 Body mass index [BMI] 45.0-49.9, adult; E66.01 Morbid (severe) obesity due to excess calories; I11.0 Hypertensive heart disease with heart failure; I50.9 Heart failure, unspecified; I27.20 Pulmonary hypertension, unspecified; G47.33 Obstructive sleep apnea (adult) (pediatric); E78.5 Hyperlipidemia, unspecified; E11.9 Type 2 diabetes mellitus without complications; I87.8 Other specified disorders of veins; N40.0 Benign prostatic hyperplasia without lower urinary tract symptoms; Z28.21 Immunization not carried out because of patient refusal; Z79.84 Long term (current) use of oral hypoglycemic drugs; Z79.899 Other long term (current) drug therapy; Z87.891 Personal history of nicotine dependence
CPT/HCPCS: 36415; 71045; 71046; 80048; 80053; 82565; 82728; 82948; 83036; 83615; 83735; 83880; 84460; 85025; 85027; 85055; 85610; 86140; 93005; 94618; 94640; 96365; 96375; 99285; A9270; C8929; C9803; G0378; J1100; J1650; J1815; J1940; U0003; U0005

== ENCOUNTER → 2021-08-03 01:47 | Outpatient (CLI) | payer MEDICARE, SELFPAY ==
[2021-08-03 13:09] LABS: SARS-CoV-2 RNA PCR Negative
== END ==
PROVIDERS: PCP Family Medicine; Visit Provider Internal Medicine Critical Care Medicine
DX: Z20.822 Contact with and (suspected) exposure to COVID-19 (principal)
CPT/HCPCS: C9803; U0003; U0005

== ENCOUNTER 2021-08-06 07:25 | Outpatient (CLI) | payer MEDICARE, SELFPAY ==
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
[2021-08-19 19:21] VITALS: BMI 45.0
== END 2021-08-07 06:47 | disposition home or self-care (01) ==
LOC: ANHCSM 07:36
PROVIDERS: PCP Family Medicine; Visit Provider Physician Assistant
DX: G47.33 Obstructive sleep apnea (adult) (pediatric) (principal); G25.81 Restless legs syndrome
CPT/HCPCS: 95811

== ENCOUNTER 2021-08-20 10:51 | Emergency (ER) | payer MEDICARE, SELFPAY ==
--- NOTE | ~2021-08-20 | XR_ITS ---
EXAMINATION: XR chest 2V DATE: 08/20/2021 14:16 INDICATION: Cough TECHNIQUE: frontal and lateral views of the chest were obtained. COMPARISON: Chest radiograph dated 06/03/2021 FINDINGS: Opacities along the bilateral lung bases. No pleural effusion or pneumothorax. Mild cardiomegaly. Inc reased prominence of the main pulmonary artery which can be seen with pulmonary arterial hypertension . Multiple old left rib fractures. IMPRESSION: 1. Opacities at the bilateral lung bases represent mild pulmonary edema, atelectasis or pneumonia. 2. Cardiomegaly with enlargement of the main pulmonary artery consistent with pulmonary arterial hype rtension. Reviewed, dictated and finalized at location A. IMPRESSION: 1. Opacities at the bilateral lung bases represent mild pulmonary edema, atelec tasis or pneumonia. 2. Cardiomegaly with enlargement of the main pulmonary artery consistent with p ulmonary arterial hypertension.
--- NOTE | ~2021-08-20 | XR_ITS ---
EXAMINATION: XR knee LT 3V DATE: 08/20/2021 13:15 INDICATION: Left knee pain. Fall. TECHNIQUE: 3 views of left knee were obtained. COMPARISON: Left knee radiographs 04/19/2021 FINDINGS: Bone alignment is normal. No fracture. There is moderate osteoarthritis of medial compartme nt and mild osteoarthritis of lateral and patellofemoral compartments. No knee joint effusion. IMPRESSION: 1. Moderate left knee osteoarthritis. Reviewed, dictated and finalized at location B.
--- NOTE | ~2021-08-20 | XR_ITS ---
EXAMINATION: XR foot RT min 3V DATE: 08/20/2021 13:14 INDICATION: Pain at the right great toe post fall TECHNIQUE: Dorsoplantar, two oblique and lateral views of the right foot were obtained. COMPARISON: None. FINDINGS: Bone alignment is normal. Cortical ossicle near the tip of the lateral malleolus either heterotopic c alcification related to chronic soft tissue injury or chronic nonunited avulsion fracture fragment. N o acute fracture. Polyarticular osteoarthritis, moderate severity first metatarsophalangeal joint and mild at multiple additional joints throughout the right foot and ankle. Moderate-sized Achilles and plantar calcaneal spurs. Suggestion of a toenail injury with elevation of the nail at the right great toe. IMPRESSION: 1. Persistent vein peroneal injury at the right great toe. No acute osseous abnormality. 2. Degenerative skeletal changes throughout the right foot and ankle is detailed above. Reviewed, dictated and finalized at location A. IMPRESSION: 1. Persistent vein peroneal injury at the right great toe. No acute osseous abn ormality. 2. Degenerative skeletal changes throughout the right foot and ankle is detaile d above.
--- NOTE | ~2021-08-20 | XR_ITS ---
EXAMINATION: XR foot LT min 3V DATE: 08/20/2021 13:14 INDICATION: Left great toe pain. Fall. TECHNIQUE: 4 views of left foot were obtained. COMPARISON: None. FINDINGS: Bone alignment is normal. No fracture. There is moderate osteoarthritis of first metatarsop halangeal joint and mild osteoarthritis of some of the interphalangeal joints and midfoot joints. The re are enthesophytes at the posterior and plantar aspects of calcaneal tuberosity. IMPRESSION: 1. Polyarticular osteoarthritis. Reviewed, dictated and finalized at location B.
[2021-08-20 11:29] VITALS: BP 90/56; PULSE 90; RESP 20; TEMP 36.2; O2SAT 87
--- NOTE | 2021-08-20 11:51 | ECG_ITS ---
Measurements Intervals [place] Rate: 77 P: 58 WI: 178 QRS: 120 QRSD: 118 T: 62 QT: 433 QTc: 492 Interpretive Statements SINUS RHYTHM RIGHT VENTRICULAR HYPERTROPHY AND ST-T CHANGE Electronically Signed On 08-20-2021 12:15:26 CDT by Jimbo Franco M.D.
[2021-08-20 12:07] LABS: Basophils Absolute Auto 0.1 K/mm3 (0.0-0.1); Basophils Percent Auto 0.9 % (0.2-1.2); Eosinophils Absolute Auto 0.2 K/mm3 (0-0.3); Eosinophils Percent Auto 2.7 % (0-4.4); Hemoglobin 16.2 g/dL (14.0-18.0); Immature Granulocyte Absolute 0.08 K/mm3 (0.00-0.031); Lymphocytes Absolute Auto 1.02 K/mm3 (0.9-3.2); Lymphocytes Percent Auto 13.2 % (18.3-44.2); Mean Corpuscular HGB Conc 32.4 g/dl (32-36); Mean Corpuscular Hemoglobin 29.7 pg (26-34); Mean Corpuscular Volume 91.6 fl (80-100); Mean Platelet Volume 11.7 fl (7.4-10.4); Monocytes Absolute Auto 0.8 K/mm3 (0.1-0.6); Monocytes Percent Auto 9.7 % (2.6-8.5); Neutrophils Absolute Auto 5.6 K/mm3 (1.3-6.7); Neutrophils Percent Auto 72.5 % (45.5-73.1); Platelet Count Result 182 k/mm3 (150-375); Red Blood Count 5.46 M/mm3 (4.6-6.20); Red Cell Distribution Width 15.2 % (11.5-14.5); White Blood Count 7.7 K/mm3 (4.5-10.0)
[2021-08-20 12:24] VITALS: O2SAT 90
[2021-08-20 12:26] LABS: Alanine Aminotransferase 17 U/L (6-50); Albumin Level 3.4 g/dL (3.5-5.1); Alkaline Phosphatase 64 U/L (38-126); Anion Gap 6 mmol/L (8-16); Aspartate Amino Transferase 20 U/L (17-59); Bilirubin,Total 1.2 mg/dL (0.2-1.3); Blood Urea Nitrogen 30 mg/dL (9-20); Calcium 9.3 mg/dL (8.4-10.2); Carbon Dioxide 30 mmol/L (22-30); Chloride 96 mmol/L (98-107); Estimated CRCL calculation 70 ml/min; Estimated Glomerular Filt Rate 52; Glucose 232 mg/dL (65-110); Sodium 132 mmol/L (137-145)
--- NOTE | 2021-08-20 12:36 | ED.SYNCOPE ---
HPI - Syncope General Chief Complaint: Syncope Stated Complaint: syncopal episode/weakness Time Seen by Provider: 08/20/21 12:03 History of Present Illness HPI narrative: Pt was standing and felt flushed and light headed and had apparent syncopal episode as he found himself on knees in front of dresser. Pt says he must have done something to his big toes and left knee because they are sore. Pt denies CP or palpitations prior to event. Pt has long history of similar spells and says no diagnosis has been made to date. Pt never been on holter. Pt says legs still feel weak. Pt on oxygen at home. Related Data Home Medications Medication Instructions Recorded Confirmed carvedilol 3.125 mg tablet 3.125 mg PO DAILY 06/02/21 07/24/21 metformin 500 mg tablet 500 mg PO BID 06/02/21 07/24/21 aspirin 81 mg tablet,delayed 81 mg PO DAILY 06/21/21 07/24/21 release (Adult Low Dose Aspirin) Allergies Allergy/AdvReac Type Severity Reaction Status Date / Time diphenhydramine Allergy Rash Verified 08/20/21 11:59 [From Benadryl] Penicillins AdvReac Swelling Verified 08/20/21 11:59 Review of Systems Review of Systems: All systems reviewed & are unremarkable except as noted in HPI and below PMFSH Past Medical History Medical History Bleeding from varicose veins of lower extremity (~2012) Resulting in hemorrhagic shock BPH (benign prostatic hyperplasia) CHF (congestive heart failure) Diabetes hemoglobin A1c of 6.9 April 19, 2021 GARCIA (dyspnea on exertion) Dyslipidemia History of hepatitis C Low testosterone Morbid obesity with BMI of 40.0-44.9, adult MAYE (obstructive sleep apnea) Uses nighttime oxygen Venous stasis dermatitis Surgical History Surgical History H/O inguinal hernia repair As an infant History of colonoscopy with polypectomy (~2019) Due for repeat colonoscopy 2024 History of laparoscopic cholecystectomy Family History Family History Father , At age 84 Alzheimer disease Heart problem Skin cancer Mother , At age 63 Carcinoma of colon Sibling , At age 52 Malignant melanoma Social History Social History (Updated 07/24/21 @ 15:34 by Vidhi Cedeño PA-C) Social History: The patient is . He lives alone in [place], [place] near [place]. 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 He used to smoke 1 pack of cigarettes per week with intermittent tobacco use over the years. He quit smoking altogether in 2011. He is a recovering alcoholic but quit drinking in 2017. He used IV methamphetamines but quit use in 2019. Code status: DNR in the event of a cardiac arrest. If he were having respiratory difficulty he would be willing to be intubated if he had a reasonable chance of being extubated and returning to his prior functional status. Surrogate decision makers: Feroz (son) and Saqib Pitts (daughter) Smoking packs per day: 0.45 Smoking cigarettes per day: 9.0 Years smoked: 20 Smoking pack-years: 9.00 Smoking status: Former smoker Alcohol intake: former Alcohol use details: He used to drink Dweho heavily but quit approximately 2017. Substance use: former Substance use type: methamphetamine Last use: 2019 Spiritual care concerns: No Exam Const: General: no acute distress Nutritional Appearance: obese Orientation/consciousness: patient oriented x3 Limitations: no limitations Neck: Neck: normal visual inspection Chest: Other: superficial abrasin right lateral chest Resp: Effort & Inspection: normal respiratory effort Auscultation: clear to auscultation bilaterally Cardio: Rate: regular rate Rhythm: regular rhythm GI: Auscultation: normal bowel sounds Skin: Other: pitting
[2021-08-20] MEDS: MORPHINE SULFATE (*CRX) 4 MG/ML INJ IV PUSH ×2 (12:40→16:36)
[2021-08-20 15:19] LABS: SARS-CoV-2 RNA PCR Negative
[2021-08-20 16:43] VITALS: RESP 20; O2SAT 94
--- NOTE | 2021-08-27 07:58 | WPDHOLTEREM ---
Holter/Event Monitor Holter/Event Monitor Date of procedure: 08/28/21 Holter/Event Procedure: 48 Hr Holter Monitor Indications: Syncope Conclusion: 1. 48 hour holter monitor on 08/20/21. 2. Predominant rhythm is sinus rhythm. HR range 46-141 bpm; average HR 83 bpm. 3. There are 1,914 premature supraventricular complexes, 142 supraventricular couplets, 4 supraventricular bigeminy, and 75 supraventricular trigeminy. There are 18 episodes of atrial tachycardia, fastest at 141 bpm and longest lasting 14 beats. 4. There are 123 premature ventricular complexes, 1 ventricular couplet, and 3 ventricular bigeminy. No ventricular tachycardia. 5. No sinoatrial or atrioventricular blocks. No significant pauses greater than 2 seconds. 6. Patient reports symptoms of dizzness and coughing which demonstrate sinus rhythm, HR range 73-103 bpm with 2 episodes with PAC's.
== END 2021-08-20 16:44 | disposition home or self-care (01) ==
PROVIDERS: Emergency Medicine; Emergency Provider Emergency Medicine; PCP Family Medicine
DX: R55 Syncope and collapse (principal); J40 Bronchitis, not specified as acute or chronic; Z20.822 Contact with and (suspected) exposure to COVID-19; I50.9 Heart failure, unspecified; E11.9 Type 2 diabetes mellitus without complications; E78.5 Hyperlipidemia, unspecified; N40.0 Benign prostatic hyperplasia without lower urinary tract symptoms; G47.33 Obstructive sleep apnea (adult) (pediatric); E66.01 Morbid (severe) obesity due to excess calories; Z68.41 Body mass index [BMI] 40.0-44.9, adult; Z86.19 Personal history of other infectious and parasitic diseases; Z87.891 Personal history of nicotine dependence; R94.31 Abnormal electrocardiogram [ECG] [EKG]; M17.12 Unilateral primary osteoarthritis, left knee; S95.80 Unspecified injury of other blood vessels at ankle and foot level; M19.072 Primary osteoarthritis, left ankle and foot; M19.071 Primary osteoarthritis, right ankle and foot; Z79.82 Long term (current) use of aspirin; Z79.84 Long term (current) use of oral hypoglycemic drugs; X58.XXXA Exposure to other specified factors, initial encounter
CPT/HCPCS: 36415; 71046; 73562; 73630; 80053; 85025; 93005; 93225; 93226; 96374; 96376; 99284; C9803; J2270; U0003; U0005

== ENCOUNTER 2021-08-28 07:19 | Outpatient (CLI) | payer MEDICARE, SELFPAY ==
[2021-08-28 20:04] LABS: Basophils Absolute Auto 0.1 K/mm3 (0.0-0.1); Basophils Percent Auto 0.9 % (0.2-1.2); Eosinophils Absolute Auto 0.3 K/mm3 (0-0.3); Eosinophils Percent Auto 2.8 % (0-4.4); Hematocrit 56.5 % (42.0-52.0); Hemoglobin 17.2 g/dL (14.0-18.0); Immature Granulocyte Absolute 0.07 K/mm3 (0.00-0.031); Immature Granulocyte Percent A 0.8 % (0-0.5); Lymphocytes Absolute Auto 1.57 K/mm3 (0.9-3.2); Lymphocytes Percent Auto 17.8 % (18.3-44.2); Mean Corpuscular HGB Conc 30.4 g/dl (32-36); Mean Corpuscular Hemoglobin 29.5 pg (26-34); Mean Corpuscular Volume 96.9 fl (80-100); Monocytes Absolute Auto 0.6 K/mm3 (0.1-0.6); Monocytes Percent Auto 6.6 % (2.6-8.5); Neutrophils Absolute Auto 6.3 K/mm3 (1.3-6.7); Neutrophils Percent Auto 71.1 % (45.5-73.1); Platelet Count Result 162 k/mm3 (150-375); Red Blood Count 5.83 M/mm3 (4.6-6.20); Red Cell Distribution Width 16.1 % (11.5-14.5); White Blood Count 8.8 K/mm3 (4.5-10.0)
[2021-08-28 20:29] LABS: Alanine Aminotransferase 18 U/L (6-50); Albumin Level 3.8 g/dL (3.5-5.1); Alkaline Phosphatase 79 U/L (38-126); Anion Gap 7 mmol/L (8-16); Aspartate Amino Transferase 19 U/L (17-59); Bilirubin,Total 0.8 mg/dL (0.2-1.3); Blood Urea Nitrogen 19 mg/dL (9-20); Calcium 9.2 mg/dL (8.4-10.2); Carbon Dioxide 33 mmol/L (22-30); Chloride 93 mmol/L (98-107); Cholesterol 106 mg/dL (0-200); Estimated Glomerular Filt Rate 56; Glucose 299 mg/dL (65-110); HDL Direct 33 mg/dL; Potassium 4.2 mmol/L (3.4-5.0); Sodium 133 mmol/L (137-145); Triglycerides 107 mg/dL (<150)
[2021-08-28 20:40] LABS: LDL Cholesterol Direct 57 mg/dL
[2021-08-30 19:56] LABS: PSA, Free 0.11 ng/mL; PSA, Total 0.5 ng/mL (<=4.0)
[2021-09-02 12:32] LABS: Testosterone Free 27.4 pg/mL (35.0-155.0); Testosterone Total 128 ng/dL (250-1100)
== END 2021-08-28 07:20 | disposition home or self-care (01) ==
PROVIDERS: PCP Family Medicine; Visit Provider Family Medicine
DX: R79.89 Other specified abnormal findings of blood chemistry (principal); Z12.5 Encounter for screening for malignant neoplasm of prostate; E29.1 Testicular hypofunction
CPT/HCPCS: 36415; 80053; 80061; 84153; 84154; 84402; 84403; 85025; G0103

== ENCOUNTER 2021-08-29 09:27 | Outpatient (CLI) | payer MEDICARE, SELFPAY ==
[2021-08-29 19:43] LABS: NT Pro B Type Natriuretic Pept 2310 pg/mL (5-100)
== END 2021-08-29 09:28 | disposition home or self-care (01) ==
PROVIDERS: PCP Family Medicine; Visit Provider Family Medicine
DX: E11.9 Type 2 diabetes mellitus without complications (principal)
CPT/HCPCS: 36415; 83036; 83880

== ENCOUNTER 2021-11-21 08:38 | Outpatient (CLI) | payer MEDICARE, SELFPAY ==
--- NOTE | ~2021-11-21 | CT_ITS ---
EXAMINATION: CT diagnostic chest wo con DATE: 11/21/2021 08:58 INDICATION: Shortness of breath TECHNIQUE: Computed tomography (CT) of the chest was performed without intravenous contrast. The dose -length product (DLP) was 969.38 mGy-cm. Automated exposure control and iterative reconstruction tech nique were employed. COMPARISON: Outside hospital CT dated 06/18/2016 FINDINGS: There are chronic areas of air-trapping in the lungs. No acute airspace opacities are ident ified. There is an 8 mm nodule in the right lower lobe which appears stable when compared to the prio r examination although respiratory motion on the prior study somewhat limits direct evaluation. No pl eural effusion or pneumothorax. There is enlargement of the main and central pulmonary arteries, cons istent with pulmonary hypertension. There is moderate bilateral gynecomastia. The heart size is riddhi l. There are no pathologically enlarged thoracic lymph nodes. Old bilateral rib fractures are noted. The gallbladder is surgically absent. There is moderate thoracic spondylosis. IMPRESSION: 1. No acute cardiopulmonary abnormality. Chronic areas of air-trapping the lungs may reflect small ve ssel disease versus small airways disease. 2. Findings consistent with pulmonary hypertension. 3. Right lower lobe nodule, probably stable since the prior examination although direct comparison is limited by prior respiratory motion. Reviewed, dictated and finalized at location B. IMPRESSION: 1. No acute cardiopulmonary abnormality. Chronic areas of air-trapping the lung s may reflect small vessel disease versus small airways disease. 2. Findings consistent with pulmonary hypertension. 3. Right lower lobe nodule, probably stable since the prior examination althoug h direct comparison is limited by prior respiratory motion.
== END 2021-11-21 08:39 | disposition home or self-care (01) ==
PROVIDERS: PCP Family Medicine; Visit Provider Physician Assistant
DX: I50.9 Heart failure, unspecified (principal); J12.82 Pneumonia due to coronavirus disease 2019; R06.00 Dyspnea, unspecified; U07.1 COVID-19; R91.1 Solitary pulmonary nodule
CPT/HCPCS: 71250

== ENCOUNTER 2021-12-05 11:54 | Outpatient (CLI) | payer MEDICARE, SELFPAY ==
[2021-12-05 19:49] LABS: Basophils Absolute Auto 0.1 K/mm3 (0.0-0.1); Basophils Percent Auto 0.7 % (0.2-1.2); Eosinophils Absolute Auto 0.2 K/mm3 (0-0.3); Eosinophils Percent Auto 2.9 % (0-4.4); Hematocrit 49.4 % (42.0-52.0); Hemoglobin 15.9 g/dL (14.0-18.0); Immature Granulocyte Absolute 0.05 K/mm3 (0.00-0.031); Immature Granulocyte Percent A 0.6 % (0-0.5); Lymphocytes Absolute Auto 1.28 K/mm3 (0.9-3.2); Lymphocytes Percent Auto 15.4 % (18.3-44.2); Mean Corpuscular HGB Conc 32.2 g/dl (32-36); Mean Corpuscular Hemoglobin 31.8 pg (26-34); Mean Corpuscular Volume 98.8 fl (80-100); Mean Platelet Volume 12.3 fl (7.4-10.4); Monocytes Absolute Auto 0.6 K/mm3 (0.1-0.6); Monocytes Percent Auto 7.3 % (2.6-8.5); Neutrophils Absolute Auto 6.1 K/mm3 (1.3-6.7); Neutrophils Percent Auto 73.1 % (45.5-73.1); Platelet Count Result 156 k/mm3 (150-375); Red Cell Distribution Width 15.2 % (11.5-14.5); White Blood Count 8.3 K/mm3 (4.5-10.0)
[2021-12-05 20:24] LABS: NT Pro B Type Natriuretic Pept 1290 pg/mL (5-100)
[2021-12-05 20:29] LABS: Anion Gap 10 mmol/L (8-16); Blood Urea Nitrogen 22 mg/dL (9-20); Calcium 9.6 mg/dL (8.4-10.2); Carbon Dioxide 32 mmol/L (22-30); Chloride 93 mmol/L (98-107); Estimated Glomerular Filt Rate 48; Glucose 324 mg/dL (65-110); Potassium 3.8 mmol/L (3.4-5.0); Sodium 135 mmol/L (137-145)
[2021-12-10 11:06] LABS: Testosterone Free 21.1 pg/mL (35.0-155.0); Testosterone Total 87 ng/dL (250-1100)
== END 2021-12-05 11:55 | disposition home or self-care (01) ==
PROVIDERS: PCP Family Medicine; Visit Provider Family Medicine
DX: I50.810 Right heart failure, unspecified (principal); I50.9 Heart failure, unspecified; R71.8 Other abnormality of red blood cells; R79.89 Other specified abnormal findings of blood chemistry
CPT/HCPCS: 36415; 80048; 83880; 84402; 84403; 85025

== ENCOUNTER 2022-01-02 14:31 | Outpatient (CLI) | payer MEDICARE, SELFPAY ==
[2022-01-02 18:51] LABS: Anion Gap 14 mmol/L (8-16); Blood Urea Nitrogen 28 mg/dL (9-20); Carbon Dioxide 34 mmol/L (22-30); Chloride 89 mmol/L (98-107); Estimated Glomerular Filt Rate 47; Glucose 305 mg/dL (65-110); Potassium 3.7 mmol/L (3.4-5.0); Sodium 137 mmol/L (137-145)
[2022-01-02 20:37] LABS: Hemoglobin A1C 10.5 % (<5.7)
== END 2022-01-02 14:32 | disposition home or self-care (01) ==
LOC: ANHBWCLAB 14:32
PROVIDERS: PCP Family Medicine; Visit Provider Family Medicine
DX: E11.9 Type 2 diabetes mellitus without complications (principal); R79.89 Other specified abnormal findings of blood chemistry; R55 Syncope and collapse; R71.8 Other abnormality of red blood cells; G25.81 Restless legs syndrome; I10 Essential (primary) hypertension; M25.562 Pain in left knee
CPT/HCPCS: 36415; 80048; 83036